=== PATIENT | female | born 1995 | race Caucasian/White ===

== ENCOUNTER 2019-12-17 | Emergency (ER) | payer SELFPAY ==
[2019-12-17] MEDS ORDERED: PERCOCET 5/325M1 TAB PO (23:58)
== END 2019-12-18 00:22 | disposition home or self-care (01) | DRG 563 ==
PROC: 2W3RX1Z Immobilization of Left Lower Leg using Splint (ICD-10-PCS; principal; 2019-12-17)
DX: S82.852A Displaced trimalleolar fracture of left lower leg, initial encounter for closed fracture (principal); W10.9XXA Fall (on) (from) unspecified stairs and steps, initial encounter; Y92.009 Unspecified place in unspecified non-institutional (private) residence as the place of occurrence of the external cause